=== PATIENT | female | born 1970 | race Caucasian/White ===

== ENCOUNTER 2017-06-22 23:05 | Emergency (ER) | payer OTHER ==
[~2017-06-22] VITALS: Ht 149.9 cm; Wt 82.0 kg
[2017-06-22 23:12] VITALS: Ht 149.9 cm; Wt 82.0 kg
[2017-06-22] MEDS ORDERED: ASPIRIN 325 MG TAB PO STA (23:36)
[2017-06-22] MEDS ORDERED: ONDANSETRON 4 MG INJ IV STA (23:36)
--- NOTE | 2017-06-23 00:27 | RADRPT ---
PROCEDURE: XR Chest. CLINICAL INDICATION: Chest pain. TECHNIQUE: AP view of the chest was obtained. COMPARISON: 2007 FINDINGS: The cardiomediastinal silhouette is within normal limits. The lungs are clear. No signs of pleural f luid or pneumothorax are seen. The osseous structures and soft tissues are unremarkable. IMPRESSION: 1. No evidence for active cardiopulmonary disease. RPTAT: HGAS .Osman Keller MD, MD Date Time Electronically viewed and signed by .Osman Keller MD, on 06/23/2017 00:26 .S/
[2017-06-23 00:38] LABS: BASOPHIL # 0.1 10^3/ul (0.0-0.1); BASOPHILS % 0.4 % (0.0-2.0); EOSINOPHILS # 0.1 10^3/ul (0.0-0.5); EOSINOPHILS % 1.1 % (0.0-7.0); HEMATOCRIT 43.5 % (37.0-47.0); HEMOGLOBIN 14.2 g/dl (12.0-16.0); LYMPHOCYTES # 3.6 10^3/ul (0.8-2.9); LYMPHOCYTES % 29.9 % (15.0-51.0); MEAN CORPUSCULAR HEMOGLOBIN 28.2 pg (29.0-33.0); MEAN CORPUSCULAR HGB CONC 32.6 g/dl (32.0-37.0); MEAN CORPUSCULAR VOLUME 86.5 fl (82.0-101.0); MEAN PLATELET VOLUME 10.9 fl (7.4-10.4); MONOCYTE # 0.8 10^3/ul (0.3-0.9); MONOCYTES % 6.8 % (0.0-11.0); NEUTROPHIL # 7.3 10^3/ul (1.6-7.5); NEUTROPHILS % 61.1 % (39.0-77.0); PLATELET COUNT 440 10^3/UL (140-415); RED BLOOD COUNT 5.03 10^6/ul (4.20-5.40); RED CELL DISTRIBUTION WIDTH 13.2 % (11.5-14.5); WHITE BLOOD COUNT 11.9 10^3/ul (4.8-10.8)
[2017-06-23 00:45] LABS: ADD UMIC YES; UR ASCORBIC ACID NEGATIVE (NEGATIVE); UR BACTERIA FEW /HPF (NONE SEEN); UR BILIRUBIN (Dip) NEGATIVE (NEGATIVE); UR BLOOD (Dip) NEGATIVE (NEGATIVE); UR CLARITY SLIGHTLY CLOUDY (CLEAR); UR COLOR YELLOW (YELLOW); UR GLUCOSE (Dip) NEGATIVE (NEGATIVE); UR KETONES (Dip) NEGATIVE (NEGATIVE); UR LEUKOCYTE ESTERASE (Dip) NEGATIVE Leu/ul (NEGATIVE); UR NITRITE (Dip) NEGATIVE (NEGATIVE); UR RBC 5 /HPF (0-5); UR SPECIFIC GRAVITY (Dip) 1.026 (1.003-1.030); UR SQUAMOUS EPITHELIAL CELL FEW /HPF (FEW); UR TOTAL PROTEIN (Dip) 1+ mg/dl (NEGATIVE); UR UROBILINOGEN (Dip) 1+ mg/dL (NEGATIVE)
[2017-06-23 00:52] LABS: ANION GAP 19 (8-16); BLOOD UREA NITROGEN 30 mg/dl (7-20); CALCIUM 10.3 mg/dl (8.4-10.2); CARBON DIOXIDE 25 mmol/L (21-31); CHLORIDE 100 mmol/L (97-110); CREATININE 1.06 mg/dl (0.44-1.00); GLUCOSE 142 mg/dl (70-220); POTASSIUM 4.4 mmol/L (3.5-5.1); SODIUM 140 mmol/L (135-144)
[2017-06-23 01:00] LABS: B-TYPE NATRIURETIC PEPTIDE 17 PG/ML (0-125)
[2017-06-23] MEDS ORDERED: LIDOCAINE/MYLANTA 40 ML BTL PO ONE (01:00)
[2017-06-23 01:23] LABS: TROPONIN-I < 0.012 ng/ml (0.00-0.12)
[2017-06-23] MEDS ORDERED: RANI150T9 PO (02:21)
[2017-06-23] MEDS ORDERED: ONDA4TAB11 PO (02:21)
[2017-06-23] MEDS ORDERED: CEPH-443 PO (02:24)
--- NOTE | 2017-06-23 02:36 | ERD ---
ER Documentation Chief Complaint Date/Time DATE: 06/23/17 TIME: 02:30 Chief Complaint chest pain x 2 days HPI 46-year-old female presents with chest pain that started yesterday. Is intermittent described as a pressure-like sensation in the center of her chest. She has had acid reflux before. States that the pain is very minimal right now. She does not have any shortness of breath. Has had nausea and has vomited nonbloody nonbilious vomit. Denies abdominal pain, fever and chills. ROS All systems reviewed and are negative except as per history of present illness. Medications Home Meds Active Scripts Cephalexin* (Keflex*) 500 Mg Capsule, 500 MG PO QID for 3 Days, CAP Prov:MICHELLE BALES DO 06/23/17 Ondansetron (Zofran Odt) 4 Mg Tab.rapdis, 4 MG PO Q6, #10 Prov:MICHELLE BALES DO 06/23/17 Ranitidine Hcl* (Zantac*) 150 Mg Tablet, 150 MG PO BID Y for EPIGASTRIC PAIN, # 30 TAB Prov:NIIMICHELLE DO 06/23/17 Allergies Allergies: Coded Allergies: No Known Allergy (Verified , 06/22/17) PMhx/Soc History of Surgery: Yes (APPENDECTOMY 2YRS AGO,C SECTION X3,) Anesthesia Reaction: No Hx Neurological Disorder: Yes (ANXIETY) Hx Respiratory Disorders: No Hx Cardiac Disorders: No Hx Psychiatric Problems: No Hx Miscellaneous Medical Probl: Yes (Diabetes) Hx Alcohol Use: Yes (BEER OCCATIONAL) Hx Substance Use: No Hx Tobacco Use: No Smoking Status: Never smoker Physical Exam Vitals Vital Signs Date Time Temp Pulse Resp B/P Pulse Ox O2 Delivery O2 Flow Rate FiO2 06/23/17 00:36 Nasal Cannula 2 06/22/17 23:12 98.4 103 20 118/61 97 Physical Exam Const: [] Mild distress. Head: Atraumatic Eyes: Normal Conjunctiva ENT: Normal External Ears, Nose and Mouth. Neck: Full range of motion..~ No meningismus. Resp: Clear to auscultation bilaterally Cardio: Regular rate and rhythm, no murmurs Abd: Soft, non tender, non distended. Normal bowel sounds Skin: No petechiae or rashes Back: No midline or flank tenderness Ext: No cyanosis, or edema Neur: Awake and alert 3, no focal deficits. Psych: Normal Mood and Affect Result Diagram: 06/22/17 2356 06/22/172358 Results 24 hrs Laboratory Tests Test 06/22/17 23:54 06/22/17 23:59 Urine Color YELLOW Urine Clarity SLIGHTLY CLOUDY Urine pH 5.0 Urine Specific [place] 1.026 Urine Ketones NEGATIVEmg/dL Urine Nitrite NEGATIVEmg/dL Urine Bilirubin NEGATIVEmg/dL Urine Urobilinogen 1+mg/dL Urine Leukocyte Esterase NEGATIVELeu/ul Urine Microscopic RBC 5/HPF Urine Microscopic WBC 6/HPF Urine Squamous Epithelial Cells FEW/HPF Urine Bacteria FEW/HPF Urine Hyaline Casts FEW/HPF Urine Hemoglobin NEGATIVEmg/dL Urine Glucose NEGATIVEmg/dL Urine Total Protein 1+mg/dl White Blood Count 11.910^3/ul Red Blood Count 5.0310^6/ul Hemoglobin 14.2g/dl Hematocrit 43.5% Mean Corpuscular Volume 86.5fl Mean Corpuscular Hemoglobin 28.2pg Mean Corpuscular Hemoglobin Concent 32.6g/dl Red Cell Distribution Width 13.2% Platelet Count 99887^3/UL Mean Platelet Volume 10.9fl Neutrophils % 61.1% Lymphocytes % 29.9% Monocytes % 6.8% Eosinophils % 1.1% Basophils % 0.4% Nucleated Red Blood Cells % 0.0/100WBC Neutrophils # 7.310^3/ul Lymphocytes # 3.610^3/ul Monocytes # 0.810^3/ul Eosinophils # 0.110^3/ul Basophils # 0.110^3/ul Nucleated Red Blood Cells # 0.010^3/ul Sodium Level 140mmol/L Potassium Level 4.4mmol/L Chloride Level 100mmol/L Carbon Dioxide Level 25mmol/L Anion Gap 19 Blood Urea Nitrogen 30mg/dl Creatinine 1.06mg/dl Glucose Level 142mg/dl Calcium Level 10.3mg/dl Troponin I < 0.012ng/ml B-Type Natriuretic Peptide 17PG/ML Current Medications Medications (Trade) Dose Ordered Sig/Melani Route PRN Reason Start Time Stop Time Status Last Admin Dose Admin Aspirin (Aspirin) 325 mg ONCE STAT PO 06/22/17 23:36 06/22/17 23:38 DC 06/23/17 00:07 Ondansetron HCl (Zofran Inj) 4 mg ONCE STAT IV 06/22/17 23:36 06/22/17 23:38 DC 06/23/17 00:07 Miscellaneous Medication (Gi Cocktail (2)) 40 ml ONCE ONCE PO 06/23/17 01:00 06/23/17 01:01 DC 06/23/17 00:56 Procedures/MDM Typical chest pain with no signs of ischemia laboratories or EKG. UTI with mild renal insufficiency. Was given 3 and 25 mg aspirin and Zofran 4 mg IV which resolved her nausea. She was then given a GI cocktail and although she only had minimal residual pain the GI cocktail took away her pain completely. Likely dehydration from her nausea causing very mild renal insufficiency. Patient is taking good p.o. in the emergency room now. I am going to discharge her with Keflex, Zantac and instructions follow-up with primary care doctor in 2 -3 days and obtain an appointment for an echocardiogram to assure normal heart function. Return precautions are given. No signs of sepsis. EkG interpretation: Sinus rhythm rate of 94, normal axis, normal intervals, nonspecific T-wave abnormality. 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 I see no widened mediastinum, no pneumothorax, no infiltrates, no pulmonary edema, no fractures. Departure Diagnosis: Primary Impression: Chest pain Additional Impressions: UTI (urinary tract infection) Vomiting Renal insufficiency Condition: Stable Patient Instructions: Understanding Urinary Tract Infections (UTIs), Chest Pain , Uncertain Cause Referrals: JACKIE BHANDARI (PCP) Additional Instructions: Llame al doctor EDMAR y marika yoandy ALBARO PARA DENTRO DE 2-3 WYLIE. Consigue yoandy albaro referral para un ECHOCARDIOGMA. Dgale a la secretaria que nosotros le instruimos hacer esta albaro.Avise o llame si calderon condicin se empeora antes de la albaro. Regresa aqui si peor o no mejor. MICHELLE BALES DO Jun 23, 2017 02:36
[2017-06-23 02:38] VITALS: BP 107/63; PULSE 85; RESP 20; TEMP 98
== END 2017-06-23 02:40 | disposition home or self-care (01) ==
LOC: E/R 23:05
DX: R07.9 Chest pain, unspecified (principal); N39.0 Urinary tract infection, site not specified; R11.10 Vomiting, unspecified; N28.9 Disorder of kidney and ureter, unspecified; E11.9 Type 2 diabetes mellitus without complications
CPT/HCPCS: 36415; 71010; 80048; 81001; 83880; 84484; 85025; 93005; 96374; J2405; Z7502; Z7610

== ENCOUNTER 2017-11-02 21:46 | Emergency (ER) | END 2017-11-03 01:34 | disposition left against medical advice (07) ==

== ENCOUNTER 2019-05-08 22:05 | Emergency (ER) | payer OTHER ==
[~2019-05-08] VITALS: Ht 149.9 cm; Wt 81.1 kg
[~2019-05-08 22:05] MED LIST: CEPH-443 PO; ONDA4TAB11 PO; RANI150T35 PO
[2019-05-08 22:08] VITALS: BP 136/68; PULSE 77; RESP 16; Ht 149.9 cm; Wt 81.1 kg
== END 2019-05-09 00:39 | disposition home or self-care (01) ==
LOC: FTE 22:05
DX: R00.8 Other abnormalities of heart beat (principal); E11.9 Type 2 diabetes mellitus without complications; I10 Essential (primary) hypertension
CPT/HCPCS: 36415; 71045; 80053; 81003; 81025; 83690; 84484; 85025; 93005; Z7502